=== PATIENT | male | born 1980 | race Caucasian/White ===

== ENCOUNTER 2016-09-29 18:30 | Emergency (ER) | payer BC, OTHER ==
[2016-09-29] MEDS ORDERED: guaiFENesin/CODEINE 5 ML UDC PO STA (18:59)
[2016-09-29] MEDS ORDERED: BENZONATATE 100 MG CAPSULE PO STA (18:59)
[2016-09-29] MEDS ORDERED: guaiFENesin/CODEINE 5 ML UDC ONE (19:16)
[2016-09-29] MEDS ORDERED: BENZONATATE 100 MG CAPSULE PO ONE (19:16)
== END 2016-09-29 20:33 | disposition home or self-care (01) ==
DX: J06.9 Acute upper respiratory infection, unspecified (principal); B97.89 Other viral agents as the cause of diseases classified elsewhere
CPT/HCPCS: 71020; 87801; 99283; A9270

== ENCOUNTER 2017-08-04 17:13 | Outpatient (CLI) | payer OTHER ==
--- NOTE | 2017-08-05 09:33 | XRAY Report ---
TWO VIEW CHEST: 08/04/2017 CLINICAL INDICATION: Persistent cough and crackles. FINDINGS: Frontal and lateral views of the chest are compared to previous films of 09/29/2016. The cardiac silhouette is within normal limits. The lungs are clear. No effusion or pneumothorax is present. IMPRESSION: NORMAL CHEST, UNCHANGED. TD: 08/05/2017 09:32
== END 2017-08-04 17:14 | disposition home or self-care (01) ==
LOC: DI 17:13
PROVIDERS: ATTEND Family Medicine
DX: R05 Cough (principal); R09.89 Other specified symptoms and signs involving the circulatory and respiratory systems
CPT/HCPCS: 71046

== ENCOUNTER 2017-08-07 23:06 | Emergency (ER) | payer OTHER ==
[2017-08-07] MEDS ORDERED: ONDANSETRON 4 MG/2 ML VIAL IVP STA (23:48)
[2017-08-07] MEDS ORDERED: SODIUM CHLORIDE 0.9% 1,000 ML IV ONE (23:48)
--- NOTE | 2017-08-08 00:03 | ED Physician Documentation ---
PD HPI NVD - Stated complaint Stated Complaint: VOM/SOA - Chief complaint Chief Complaint: Abd Pain - History obtained from History obtained from: Patient - History of Present Illness Timing - onset: How many weeks ago (4) Timing - duration: Weeks Timing - details: Gradual onset, Intermittant, Waxing and waning Associated symptoms: Fever, Dizzy, Near syncope / syncope. No: Abdominal pain Similar symptoms before: Has not had sx before Recently seen: Not recently seen - Additonal information Additional information: 4 weeks of cough, worse x 2 weeks and intermittently associated with vomiting. has had 2 syncopal episodes at work over psst week. fever two weeks ago but not this past week. generalized malaise. chief complaint tonight is n/v Review of Systems Constitutional: reports: Fever, Myalgias, Fatigue Eyes: reports: Reviewed and negative Cardiac: reports: Reviewed and negative Respiratory: reports: Cough. denies: Dyspnea PD PAST MEDICAL HISTORY - Past Medical History Past Medical History: No Cardiovascular: None Respiratory: None Neuro: None Endocrine/Autoimmune: None GI: None : None HEENT: None Psych: None Musculoskeletal: None Derm: None - Past Surgical History Past Surgical History: No - Present Medications Home Medications: Ambulatory Orders Medication Instructions Recorded Confirmed Benzonatate [Tessalon] 100 mg PO TID PRN #20 capsule 09/29/16 Sulfamethox/Trimeth 800/160 1 each PO BID #28 tablet 09/29/16 [Bactrim Ds 800/160] guaiFENesin/CODEINE [Robitussin AC] 5 - 10 ml PO Q6H PRN #120 udc 09/29/16 Ondansetron Odt [Zofran Odt] 4 mg TL Q6H PRN #10 tablet 08/08/17 - Allergies Allergies/Adverse Reactions: Allergies Allergy/AdvReac Type Severity Reaction Status Date / Time erythromycin base Allergy Unknown Verified 08/07/17 23:15 Tetracyclines Allergy Unknown Verified 08/07/17 23:15 - Social History Does the pt smoke?: No Smoking Status: Never smoker Does the pt drink ETOH?: No Does the pt have substance abuse?: No - POLST Patient has POLST: No PD ED PE NORMAL - Vitals Vital signs reviewed: Yes - General General: Alert and oriented X 3, No acute distress, Well developed/nourished - HEENT HEENT: Moist mucous membranes - Neck Neck: Supple, no meningeal sign - Cardiac Cardiac: RRR, No murmur, No gallop, No rub - Respiratory Respiratory: No respiratory distress, Clear bilaterally - Abdomen Abdomen: Normal bowel sounds, Soft, Non tender, Non distended - Back Back: No CVA TTP Results - Vitals Vitals: Oxygen O2 Source Room air - Labs Labs: Laboratory Tests 08/08/17 08/08/17 00:18 00:18 WBC 7.8 RBC 5.19 Hgb 15.4 Hct 44.7 MCV 86.2 MCH 29.7 MCHC 34.5 RDW 13.5 Plt Count 198 MPV 9.0 Neut # 4.6 Lymph # 2.2 [place] # 0.8 Eos # 0.1 Baso # 0.1 Absolute Nucleated RBC 0.00 Nucleated RBC % 0.0 Sodium 138 Potassium 3.6 Chloride 102 Carbon Dioxide 23 Anion Gap 13.0 BUN 28 H Creatinine 0.9 Estimated GFR (MDRD) 95 Glucose 91 Calcium 9.4 Total Bilirubin 0.8 AST 27 ALT 28 Alkaline Phosphatase 50 Total Protein 7.5 Albumin 4.6 Globulin 2.9 Albumin/Globulin Ratio 1.6 Lipase 19 L PD MEDICAL DECISION MAKING - ED course Complexity details: reviewed results, re-evaluated patient, considered differential, d/w patient Departure - Departure Disposition: Home, Self Care Clinical Impression: Vomiting Qualifiers: Vomiting type: unspecified Vomiting Intractability: non-intractable Nausea presence: with nausea Qualified Code(s): R11.2 - Nausea with vomiting, unspecified URI (upper respiratory infection) Qualifiers: URI type: unspecified URI Qualified Code(s): J06.9 - Acute upper respiratory infection, unspecified Condition: Good Instructions: ED Diet Vomiting Diarrhea, ED Nausea Vomiting Follow-Up: Ja Torres DO [Primary Care Provider] - Within 1 week Prescriptions: Ondansetron Odt [Zofran Odt] 4 mg TL Q6H PRN #10 tablet PRN Reason: Nausea / Vomiting Discharge Date/Time: 08/08/17 03:18
[2017-08-08 00:28] LABS: BASOPHILS # (AUTO) 0.1 10^3/uL (0.0-0.1); BASOPHILS % (AUTO) 0.7 %; EOSINOPHILS # (AUTO) 0.1 10^3/uL (0.0-0.7); EOSINOPHILS % (AUTO) 1.4 %; HGB - HEMOGLOBIN 15.4 g/dL (14.0-18.0); LYMPHOCYTES # (AUTO) 2.2 10^3/uL (1.5-3.5); LYMPHOCYTES % (AUTO) 28.2 %; MEAN CORPUSCULAR HEMOGLOBIN 29.7 pg (27.0-31.0); MEAN CORPUSCULAR HGB CONC 34.5 g/dL (32.0-36.0); MEAN CORPUSCULAR VOLUME 86.2 fL (80.0-94.0); MONOCYTES # (AUTO) 0.8 10^3/uL (0.0-1.0); MONOCYTES % (AUTO) 10.2 %; NEUTROPHILS # (AUTO) 4.6 10^3/uL (1.5-6.6); NEUTROPHILS % (AUTO) 59.5 %; PLT - PLATELET COUNT 198 10^3/uL (130-450); RED BLOOD COUNT 5.19 10^6/uL (4.70-6.10); RED CELL DISTRIBUTION WIDTH 13.5 % (12.0-15.0); WHITE BLOOD COUNT 7.8 x10^3/uL (4.8-10.8)
[2017-08-08 00:42] LABS: ALBUMIN 4.6 g/dL (3.2-5.5); ALBUMIN/GLOBULIN RATIO 1.6 (1.0-2.2); BILIRUBIN,TOTAL 0.8 mg/dL (0.2-1.0); CALCIUM 9.4 mg/dL (8.5-10.3); CREATININE 0.9 mg/dL (0.6-1.2); TOTAL PROTEIN 7.5 g/dL (6.7-8.2)
[2017-08-08] MEDS ORDERED: ONDANSETRON ODT 4 MG Prepack 2 TL STA (02:44)
[2017-08-08 03:12] VITALS: BP 128/81
== END 2017-08-08 03:18 | disposition home or self-care (01) ==
LOC: ED 23:06
DX: R11.2 Nausea with vomiting, unspecified (principal); J06.9 Acute upper respiratory infection, unspecified
CPT/HCPCS: 36415; 80053; 83690; 85025; 93005; 96361; 96374; 99283